=== PATIENT | male | born 1995 | race Caucasian/White ===

== ENCOUNTER 2018-06-16 21:32 | Emergency (ER) | payer OTHER ==
[~2018-06-16] VITALS: Ht 188 cm; Wt 68.0 kg
[~2018-06-16 21:32] MED LIST: ADVAIR HFA115 MCG/21 INH; CIPRO500 MG PO; CIPROFLOXIN HC2.5 M1 OPHTHALMIC; KEFLEX500 M1 PO; LEVAQUIN 500 M500 M2 PO; LEVAQUIN 500 M500 MG PO; MOOD STABILIZER PO; PREDNISONE 10 M10 MG PO; PREDNISONE 20 M20 M1 PO; PROTONIX40 M1 PO; VENTOLIN HFA INH8 GM IH; ZANTAC 150MG T150 MG PO
[2018-06-16 22:27] LABS: ABSOLUTE BASOPHILS 0.1 thou/uL (0.0-0.2); ABSOLUTE EOSINOPHILS 0.2 thou/uL (0.0-0.7); ABSOLUTE LYMPHOCYTES 2.8 thou/uL (0.8-5.3); ABSOLUTE MONOCYTES 0.7 thou/uL (0.0-1.2); BASOPHILS 1.4 %; EOSINOPHILS 3.1 %; HEMATOCRIT 43.5 % (42.0-52.0); HEMOGLOBIN 14.9 gm/dL (14.0-18.0); LYMPHOCYTES 35.5 %; MCH 31.7 pg (26.0-34.0); MCHC 34.2 g/dL (28.0-37.0); MCV 92.6 fL (80.0-100.0); MONOCYTES 9.5 %; MPV 8.1 fl. (7.2-11.1); NUCLEATED RBCS 0 /100WBC; PLATELET COUNT* 183 thou/uL (150-400); POLYS 50.5 %; RDW-CV 13.1 % (10.5-14.5); WBC 7.9 thou/uL (4.0-11.0)
[2018-06-16] MEDS ORDERED: NORCO 5-325 TA1 EACH PO (22:55)
[2018-06-16] MEDS ORDERED: MEDROLDOSEPACK PO (22:55)
[2018-06-16] MEDS ORDERED: INDOMETHACIN 5050 M1 PO (22:55)
[2018-06-16 23:07] VITALS: BP 114/62
== END 2018-06-16 23:08 | disposition home or self-care (01) ==
LOC: M.ERS 21:32
PROVIDERS: Nurse Practitioner Family
DX: M10.9 Gout, unspecified (principal); F17.210 Nicotine dependence, cigarettes, uncomplicated; Z88.0 Allergy status to penicillin; Z88.2 Allergy status to sulfonamides; Z88.1 Allergy status to other antibiotic agents; Z87.01 Personal history of pneumonia (recurrent)